=== PATIENT | female | born 1990 | race Two or more races ===

== ENCOUNTER 2020-11-16 15:47 | Emergency (ER) | payer MEDICAID, OTHER ==
[~2020-11-16] VITALS: Ht 180.3 cm; Wt 70.3 kg
[2020-11-16 15:48] VITALS: BP 121/78
== END 2020-11-16 18:47 | disposition left against medical advice (07) ==
LOC: ER 15:48
DX: O46.91 Antepartum hemorrhage, unspecified, first trimester (principal); O26.892 Other specified pregnancy related conditions, second trimester; R10.30 Lower abdominal pain, unspecified; Z3A.15 15 weeks gestation of pregnancy

== ENCOUNTER 2021-07-17 17:45 | Emergency (ER) | payer MEDICAID ==
[~2021-07-17] VITALS: Ht 165.1 cm; Wt 72.6 kg
[2021-07-17 18:13] VITALS: BP 127/75
== END 2021-07-17 20:35 | disposition left against medical advice (07) ==
LOC: ER 17:45 → EDBD 17:45 → ER 20:35
DX: R20.2 Paresthesia of skin (principal); Z53.21 Procedure and treatment not carried out due to patient leaving prior to being seen by health care provider

== ENCOUNTER 2022-01-28 07:22 | Emergency (ER) | payer MEDICAID ==
[~2022-01-28] VITALS: Ht 160 cm; Wt 69.4 kg
[2022-01-28 07:41] VITALS: BP 137/93
[2022-01-28] MEDS ORDERED: methylPREDNISolone SOD SUCC 40 MG/ML VL IV ONE (08:00)
[2022-01-28] MEDS ORDERED: diphenhdrAMINE HCL 50 MG/1 ML VL IV ONE (08:00)
== END 2022-01-28 08:52 | disposition home or self-care (01) ==
LOC: ER 07:22
DX: L23.9 Allergic contact dermatitis, unspecified cause (principal)
CPT/HCPCS: 96374; 96375; 99284; J1200; J2920

== ENCOUNTER 2022-04-12 00:14 | Emergency (ER) | payer MEDICAID ==
[~2022-04-12] VITALS: Ht 162.6 cm; Wt 71.8 kg
[2022-04-12 00:15] VITALS: BP 127/96
[2022-04-12] MEDS ORDERED: FAMOTIDINE (10MG/ML) 2ML VL IV ONE (00:45)
[2022-04-12] MEDS ORDERED: SODIUM CHLORIDE 0.9% 1,000 ML IV ONE (00:45)
[2022-04-12] MEDS ORDERED: methylPREDNISolone SOD SUCC 125 MG/2 ML VL IV ONE (00:45)
[2022-04-12] MEDS ORDERED: diphenhdrAMINE HCL 50 MG/1 ML VL IV ONE (00:45)
== END 2022-04-12 02:15 | disposition home or self-care (01) ==
LOC: ER 00:14
DX: L23.1 Allergic contact dermatitis due to adhesives (principal); F41.9 Anxiety disorder, unspecified; J45.909 Unspecified asthma, uncomplicated; Z98.890 Other specified postprocedural states
CPT/HCPCS: 96361; 96374; 96375; 99284; J1200; J2930; J3490; J7030